=== PATIENT | female | born 1990 | race Two or more races ===

== ENCOUNTER → 2018-11-29 | Outpatient (CLI) | payer BC ==
[~2018-11-29] MED LIST: IOHEXOL 240 MG/ML 50ML VIAL. PO ONE; IOHEXOL 300 MG/ML 100ML VIAL. IV ONE
--- NOTE | 2018-11-29 09:52 | KCIC ---
EXAM: Abdomen and pelvis CT with intravenous contrast. HISTORY: Pain. TECHNIQUE: Computed tomographic images of the abdomen and pelvis were obtained following the administration of 89 cc Omnipaque 300 intravenous contrast. Multiplanar reformatting was performed. *One or more of the following individualized dose reduction techniques were utilized for this examination: 1. Automated exposure control. 2. Adjustment of the mA and/or kV according to patient size. 3. Use of iterative reconstruction technique. COMPARISON: None. FINDINGS: Evaluation of the lower thorax demonstrates no infiltrate or pleural effusion. There is a tiny hiatal hernia. The liver, gallbladder, pancreas and adrenal glands are unremarkable. There is a splenule adjacent to an otherwise unremarkable spleen. The kidneys are unremarkable. There is no appendicitis. There is no bowel obstruction or abnormal bowel wall thickening. The urinary bladder and uterus are unremarkable. There is a suspected physiologic dominant right ovarian follicular cyst measuring 1.6 cm. There is trace pelvic free fluid. There is no lymphadenopathy. IMPRESSION: No acute abdominal or pelvic finding. Electronically signed by: Nayana Blandon MD (11/29/2018 9:49 AM) [facility]
== END | disposition home or self-care (01) ==
LOC: KCIC CT 07:57
PROVIDERS: ATTEND Internal Medicine Gastroenterology
DX: K44.9 Diaphragmatic hernia without obstruction or gangrene (principal)
CPT/HCPCS: 74177; Q9966; Q9967